=== PATIENT | male | born 2000 | race African-American/Black ===

== ENCOUNTER 2021-09-02 10:15 | Emergency (ER) | payer OTHER, SELFPAY ==
[2021-09-02 10:22] VITALS: BP 125/58; PULSE 58; RESP 12; TEMP 36.9; O2SAT 100
--- NOTE | 2021-09-02 10:25 | ED.WOUNDLAC ---
HPI - Wound/Laceration General Chief Complaint: Wound/Laceration Stated Complaint: lt wrist/hand burn Time Seen by Provider: 09/02/21 10:17 Source: patient and RN notes reviewed Mode of arrival: ambulatory Limitations: no limitations History of Present Illness HPI narrative: This is a 21-year-old male who presented to urgent care today with complaints of superficial burn on his left wrist caused by staying. According to patient while he was at work he sustained a superficial burn to his left wrist caused by staying while cooking. Patient notes that while he was at home he cleaned the wound daily with to the site and covered it with gauze and tape he also had a healed near his thumb. The wound to his wrist which is now open. The site was cleaned with normal saline triple antibiotic placed with gauze and coband. There is no signs and symptoms of infection noted no discharge or pus redness or edema, patient denies any fevers he does report slight pain to the site patient instructed to get Neosporin with pain relief to relieve his pain. Extremity Location: Left: wrist and hand Related Data Home Medications Medication Instructions Recorded Confirmed No Home Medications 09/02/21 09/02/21 Allergies Allergy/AdvReac Type Severity Reaction Status Date / Time No Known Allergies Allergy Verified 09/02/21 10:27 Review of Systems Review of Systems: A 14 organ system Review of Systems was performed and pertinent positives included in the HPI, otherwise remaining ROS is negative. [facility] Family History Family History (Updated 09/02/21 @ 10:26 by ERNESTO Aquino) Other Family history non-contributory Exam Narrative: GENERAL: This is a well-nourished, well-developed patient, in no apparent distress. HEAD: normocephalic, atraumatic. EYES: PERRL. Sclera clear/white. Vision is grossly intact. EARS: External ears normal, auditory canals clear and without drainage, TMs normal without perforation. Hearing grossly intact. NOSE: External nose normal with no obvious nasal discharge, nares without redness, no rhinorrhea. THROAT: Mucous membranes moist, posterior pharynx clear. NECK: Neck supple, non-tender without lymphadenopathy, masses or thyromegaly. CARDIOVASCULAR: Regular rate and rhythm without murmurs, gallops, or rubs. RESPIRATORY: Clear to auscultation. Breath sounds equal bilaterally. No wheezes, rales, or rhonchi. GASTROINTESTINAL: Abdomen soft, non-tender, nondistended. Bowel sounds are active. No hepato-splenomegaly, or palpable masses. No guarding. SKIN: Left wrist open ulcers due to burn burn to the left hand near thumb healed, no pus edema or erythema to the site. NEURO: awake, alert, and oriented to person, place and time. There were no obvious focal neurologic abnormalities. Steady gait EXTREMITIES: Normal range of motion. No edema. No calf tenderness. Negative Homans sign bilaterally. BACK: Nontender without deformity or crepitance. No flank tenderness. Course Course Emergency Course: No intervention needed patient continue treatment Vital Signs Vital signs: Vital Signs Temperature 98.4 F 09/02/21 10:22 Pulse Rate 58 L 09/02/21 10:22 Respiratory Rate 12 09/02/21 10:22 Blood Pressure 125/58 L 09/02/21 10:22 Pulse Oximetry 100 09/02/21 10:22 Temperature 98.4 F 09/02/21 10:22 Pulse Rate 58 L 09/02/21 10:22 Respiratory Rate 12 09/02/21 10:22 Blood Pressure 125/58 L 09/02/21 10:22 Pulse Oximetry 100 09/02/21 10:22 MDM - Wound/Laceration Differential Diagnosis Differential diagnosis: Likely abrasion and other (Burn) Discharge Plan Discharge Clinical Impression: Burn Patient Disposition: Home, Self-Care Condition: Stable Instructions: Antibiotic Form, Superficial Burn (ED) Additional Instructions: Follow-up with your primary care physician in 1 to 2 weeks Should I see a doctor or nurse? ? See your doctor or nurse right away if you are not sure how bad your
== END 2021-09-02 10:48 | disposition home or self-care (01) ==
PROVIDERS: Emergency Provider Nurse Practitioner
DX: T23.172A Burn of first degree of left wrist, initial encounter (principal); T23.152A Burn of first degree of left palm, initial encounter
CPT/HCPCS: 99212; G0463